=== PATIENT | female | born 1995 | race Caucasian/White ===

== ENCOUNTER 2018-12-11 04:01 | Inpatient (IN) | payer SELFPAY ==
[~2018-12-11] VITALS: Ht 154.9 cm; Wt 103.4 kg
[2018-12-11 04:09] VITALS: BP 121/60
[2018-12-11] MEDS ORDERED: ONDANSETRON 4 MG/2 ML VIAL IVP ONE (04:10)
--- NOTE | 2018-12-11 04:12 | NUR ---
PT AMBULATED TO BED 3 WITH VSS. PROVIDING URINE.
--- NOTE | 2018-12-11 04:15 | NUR ---
PATIENT PRESENTS TO ED WITH C/O DIFUSE ABD PAIN RADIATING TO RIGHT FLANK WITH 10/10 PAIN. N/V. NO CHANGE IN URINATION. AFEBRILE. VSS. NO HX. DENIES N/V/D; SKIN IS PINK/WARM/DRY; AAOX4 WITH EVEN AND STEADY GAIT; LUNGS CLEAR BL; HR EVEN AND REGULAR; PT DENIES ANY FEVER, CP, SOB, OR COUGH AT THIS TIME; PATIENT STATES PAIN OF 6/10 AT THIS TIME; VSS; PATIENT POSITIONED FOR COMFORT; HOB ELEVATED; BEDRAILS UP X2; BED DOWN. ER MD MADE AWARE OF PT STATUS.
[2018-12-11 04:25] LABS: BASOPHILS % (AUTO) 0.3 % (0.0-2.0); EOSINOPHILS % (AUTO) 0.2 % (0.0-4.0); HEMATOCRIT 39.1 % (36-48); HEMOGLOBIN 13.1 g/dL (12.0-16.0); LYMPHOCYTES # (AUTO) 1.4 K/uL (2.5-16.5); LYMPHOCYTES % (AUTO) 25.1 % (20.5-51.1); MEAN CORPUSCULAR HEMOGLOBIN 29 pg (27-31); MEAN CORPUSCULAR HGB CONC 34 g/dL (33-37); MEAN CORPUSCULAR VOLUME 86.2 fL (80-94); MONOCYTES # (AUTO) 0.3 K/uL (0.8-1.0); MONOCYTES % (AUTO) 5.3 % (1.7-9.3); NEUTROPHILS # (AUTO) 3.8 K/uL (1.8-7.7); NEUTROPHILS % (AUTO) 69.1 % (42.2-75.2); PLATELET COUNT (AUTO) 180 K/uL (140-450); RED BLOOD CELL COUNT(AUTO) 4.54 MIL/uL (4.20-5.40); RED CELL DISTRIBUTION WIDTH 14.3 % (11.6-13.7); WHITE BLOOD COUNT (AUTO) 5.4 K/uL (4.8-10.8)
[2018-12-11 04:39] LABS: ANION GAP 12.9 (8-16); CARBON DIOXIDE 25.9 mmol/L (21-32); CREATININE 0.8 mg/dL (0.6-1.3); POTASSIUM 3.8 mmol/L (3.5-5.1)
[2018-12-11 04:45] LABS: ALBUMIN 3.5 g/dL (3.4-5.0); TOTAL BILIRUBIN 1.1 mg/dL (0.0-1.0)
[2018-12-11] MEDS ORDERED: KETOROLAC 30 MG/ML VIAL IVP ONE (04:45)
[2018-12-11] MEDS ORDERED: NACL 0.9% 500 ML IV ONE (04:45)
[2018-12-11] MEDS ORDERED: MORPHINE SULFATE 2 MG/ML SYR IVP PRN (06:35)
[2018-12-11] MEDS ORDERED: ACETAMINOPHEN 325 MG TAB PO PRN (06:35)
[2018-12-11] MEDS ORDERED: LORazepam 2 MG/ML VIAL IM/IVP PRN (06:35)
[2018-12-11] MEDS ORDERED: ONDANSETRON 4 MG/2 ML VIAL IM/IVP PRN (06:35)
[2018-12-11] MEDS ORDERED: DOCUSATE SODIUM 100 MG GELCAP PO PRN (06:35)
--- NOTE | 2018-12-11 06:51 | NUR ---
Patient will be admitted to care of dr. vogt. Admited to med surge. Will go to room 125 Belongings list completed. Report to devang.
[2018-12-11] MEDS ORDERED: NACL 0.9% 1,000 ML IV SCH (07:00)
--- NOTE | 2018-12-11 07:00 | NUR ---
RECEIVED PT FROM ER VIA W/C.PLACED ON BED .ORIENTED TO ROOM.CALL SYSTEM EXPLAINED AND IN REACH.PT IS AWAKE ,ALERT AND ORIENTED X4.RESP.UNLABORED. WILL ENDORSED TO AM RN.
[2018-12-11 07:04] LABS: PROTHROMBIN TIME 9.2 secs (10.8-13.4)
[2018-12-11 07:21] LABS: MAGNESIUM 2.4 mg/dL (1.8-2.4); PHOSPHORUS 4.1 mg/dL (2.5-4.9); THYROID STIMULATING HORMONE 2.82 uIU/mL (0.34-3.74)
[2018-12-11 07:30] VITALS: BP 103/54
--- NOTE | 2018-12-11 07:30 | NUR ---
RECEIVED BEDSIDE REPORT FROM SAND CASTER NURSE. PATIENT IS AWAKE, ALERT AND ORIENTEDX4. NO SIGNS OF DISTRESS ON RA. SKIN IS INTACT. PATIENT IS AMBULATORY, CONTINENT. L AC 20G SL. CLEAN, DRY AND INTACT. NPO FOR SURGICAL CONSULT AND NM SCAN. PATIENT IS AWARE. BED IN LOW POSITION. CALL LIGHT WITHIN REACH. PATIENT ABLE TO MAKE NEEDS KNOWN
--- NOTE | 2018-12-11 08:29 | NUR ---
PATIENT HAS BEEN SCREENED AND CATEGORIZED HIGH NUTRITION RISK. PATIENT WILL BE SEEN WITHIN 1-2 DAYS OF ADMISSION. 12/11/18-12/12/[address]
[2018-12-11] MEDS ORDERED: HYDROcodone/APAP 5/325 MG 1 TAB TAB PO PRN (08:45)
[2018-12-11] MEDS: NICOTINE TRANSD SYS 7 MG/24 HR PATCH TD SCH (09:00)
[2018-12-11 09:05] LABS: APPEARANCE,URINE CLEAR (CLEAR); BILIRUBIN,URINE 1+ (NEGATIVE); BLOOD, URINE NEGATIVE (NEGATIVE); COLOR,URINE YELLOW (YELLOW); LEUKOCYTE ESTERASE ,URINE NEGATIVE (NEGATIVE); NITRITE, URINE NEGATIVE (NEGATIVE); UGLUCOSE NEGATIVE (NEGATIVE)
[2018-12-11 09:12] LABS: BARBITURATE, URINE NEG ng/ml (NEG <=200)
[2018-12-11 09:13] LABS: BENZODIAZEPINE, URINE NEG ng/mL (NEG <=200); CANNABINOID, URINE NEG ng/mL (NEG <=50); COCAINE, URINE NEG ng/mL (NEG <=300); OPIATE, URINE NEG ng/mL (NEG <=2000); PHENCYCLIDINE SCREEN,URINE NEG ng/mL (NEG <=25)
[2018-12-11] MEDS: DEXT 5% / NACL 0.45% 1,000 ML IV SCH ×2 (09:16→18:16)
--- NOTE | 2018-12-11 09:16 | NUR ---
D5 1/2NS STARTED AT 100. IV CLEAN, DRY AND INTACT. PATIENT REFUSED NICOTINE PATCH SHE SAID SHE DOES NOT NEED IT, ONLY SMOKES 1 CIGARETTE A MONTH AND NOT DEPENDENT. EDUCATED PATIENT ON REFUSAL OF PATIENT. PATIENT VERBALIZED UNDERSTANDING. FAMILY AT BEDSIDE. WILL CONTINUE TO MONITOR
[2018-12-11 09:20] LABS: RBC,URINE 0-5 /HPF (0-5); WBC,URINE 0-5 /HPF (0-5)
[2018-12-11] MEDS ORDERED: MORPHINE SULFATE 2 MG/ML SYR IVP SCH (10:30)
--- NOTE | 2018-12-11 11:20 | NUR ---
PATIENT LAYING IN BED. NO SIGNS OF DISTRESS. WILL CONTINUE TO MONITOR THE PATIENT
--- NOTE | 2018-12-11 13:19 | NUR ---
PATIENT IS AWARE NUCLEAR MED IS LATE ON SCANS. THEY WILL TOY DEPARTMENT MANAGER PATIENT LATER. PATIENT VERBALIZED UNDERSTANDING
--- NOTE | 2018-12-11 13:55 | NUR ---
PATIENT PICKED UP BY NUCLEAR MED STAFF. PATIENT LEFT IN STABLE CONDITION
--- NOTE | 2018-12-11 15:15 | NUR ---
administered 2mg morphine as ordered for nuclear med scan. patient tolerated well and educated on side effects
[2018-12-11 16:00] VITALS: BP 106/60
--- NOTE | 2018-12-11 16:00 | NUR ---
PATIENT BACK FROM NUCLEAR MED SCAN. NO SIGNS OF DISTRESS. VITALS ARE WITHIN NORMAL LIMITS. WILL CONTINUE TO MONITOR THE PATIENT.
--- NOTE | 2018-12-11 18:09 | NUR ---
PATIENTS IV ALARMING, HIGH PRESSURE ALARM GOING OFF. CHECKED FOR ANY KINKS AND RESTARTED IV. TOLD PATIENT TO CALL ME IF IT CONTINUE TO ALARM. WILL CONTINUE TO MONITOR. CALL LIGHT WITHIN REACH
--- NOTE | 2018-12-11 19:06 | NUR ---
gave bedside report to runstitching machine operator nurse. patient endorsed in stable condition.
--- NOTE | 2018-12-11 19:15 | NUR ---
RECEIVED PT IN STABLE CONDITION FROM AM NURSE. AWAKE,ALERT AND ORIENTED X4. MED SURG PT. WITH NO C/O PAIN AT THIS TIME. HAS IVF INFUSING WELL ON THE LT AC#20. CLEAR AND PATENT. PT AWARE ABOUT NPO STATUS. PLAN OF CARE DISCUSSED AND VERBALIZED UNDERSTANDING. BED ON LOW POSITION, SIDE RAILS UP X2 AND CALL LIGHT PLACED WITHIN REACH. WILL CONTINUE TO MONITOR.
--- NOTE | 2018-12-11 21:00 | NUR ---
PT STILL AWAKE, BUR NO C/O ANY PAIN AT THIS TIME.
--- NOTE | 2018-12-11 23:00 | NUR ---
PT C/O THAT SHE IS ALREADY HUNGRY AND INTEND TO JUST GO TO OTHER HOSPITAL BECAUSE SHE SAID SHE CAN'T WAIT FOR THE GI SPECIALIST. DR. JACKSON TALKED TO HER AND EXPLAINED THE NEED TO BE SEEN BY GI SPECIALIST AND CAN HAVE ICE CHIPS /SIPS WATER. IF SHE REALLY CAN'T WAIT CAN GO AMA. SO PT SAID SHE HAS TO CALL HER MOM.
--- NOTE | 2018-12-11 23:30 | NUR ---
CHECKED WITH PT. SHE SAID SHE WILL STAY. ASKED FOR SOME ICE CHIPS. .
[2018-12-12] VITALS: BP 115/72
--- NOTE | 2018-12-12 | NUR ---
PT AWAKE. VITAL SIGNS STABLE. NO C/O ANY PAIN NOTED.
--- NOTE | 2018-12-12 02:00 | NUR ---
MADE ROUNDS. PT ASLEEP. NO S/S OF ANY DISCOMFORT NOTED.
--- NOTE | 2018-12-12 04:00 | NUR ---
PT STABLE. NO C/O ANY PAIN NOTED.
--- NOTE | 2018-12-12 06:00 | NUR ---
PT ASLEEP. NO S/S OF ANY DISCOMFORT NOR PAIN NOTED.
[2018-12-12 06:32] LABS: BASOPHILS % (AUTO) 0.4 % (0.0-2.0); EOSINOPHILS # (AUTO) 0.1 K/uL (0-0.4); EOSINOPHILS % (AUTO) 2.1 % (0.0-4.0); HEMATOCRIT 36.3 % (36-48); LYMPHOCYTES # (AUTO) 2.1 K/uL (2.5-16.5); LYMPHOCYTES % (AUTO) 41.2 % (20.5-51.1); MEAN CORPUSCULAR HEMOGLOBIN 29 pg (27-31); MEAN CORPUSCULAR HGB CONC 33 g/dL (33-37); MEAN CORPUSCULAR VOLUME 87.2 fL (80-94); MONOCYTES # (AUTO) 0.3 K/uL (0.8-1.0); MONOCYTES % (AUTO) 5.7 % (1.7-9.3); NEUTROPHILS # (AUTO) 2.6 K/uL (1.8-7.7); NEUTROPHILS % (AUTO) 50.6 % (42.2-75.2); PLATELET COUNT (AUTO) 149 K/uL (140-450); RED BLOOD CELL COUNT(AUTO) 4.17 MIL/uL (4.20-5.40); RED CELL DISTRIBUTION WIDTH 14.4 % (11.6-13.7); WHITE BLOOD COUNT (AUTO) 5.2 K/uL (4.8-10.8)
[2018-12-12 06:45] LABS: CHOL/HDL RATIO 2.3 (1-4.5)
--- NOTE | 2018-12-12 06:50 | NUR ---
URINE SPECIMEN FOR TEST COLLECTED . SEND TO LAB.
[2018-12-12 07:09] LABS: ANION GAP 12.7 (8-16); CARBON DIOXIDE 25.6 mmol/L (21-32); CREATININE 0.8 mg/dL (0.6-1.3); POTASSIUM 3.3 mmol/L (3.5-5.1)
[2018-12-12 07:24] LABS: MAGNESIUM 2.1 mg/dL (1.8-2.4); PHOSPHORUS 3.6 mg/dL (2.5-4.9)
--- NOTE | 2018-12-12 07:25 | NUR ---
ENDORSED PT IN STABLE CONDITION TO AM NURSE.
[2018-12-12 07:26] LABS: ALBUMIN 2.9 g/dL (3.4-5.0); BILIRUBIN,DIRECT 0.2 mg/dL (0.0-0.3); TOTAL BILIRUBIN 0.5 mg/dL (0.0-1.0)
--- NOTE | 2018-12-12 07:30 | NUR ---
RECEIVED PT AAOX4. NO SOB NOTED. NO C/O PAIN AT THIS TIME. IV TO LEFT AC PATENT AND INTACT. CHEST CLEAR. ABDOMEN SOFT, BOWEL SOUNDS PRESENT. NPO MAINTAINED. INSTRUCTED PT TO GILBERTO FOR ASSISTANCE, CALL LIGHT WITHIN REACH, VERBALIZED UNDERSTANDING.
[2018-12-12 08:00] VITALS: BP 112/62
[2018-12-12] MEDS ORDERED: ALPRAZolam 0.5 MG TAB PO PRN (08:35)
[2018-12-12] MEDS: NICOTINE TRANSD SYS 7 MG/24 HR PATCH TD SCH (09:00)
[2018-12-12] MEDS ORDERED: POTASSIUM CHLORIDE 10 MEQ TABER PO SCH (09:04)
[2018-12-12] MEDS: DEXT 5% / NACL 0.45% 1,000 ML IV SCH ×2 (09:34→14:45)
--- NOTE | 2018-12-12 10:00 | NUR ---
PT RESTING. NO SOB NOTED. NO C/O PAIN AT THIS TIME.
--- NOTE | 2018-12-12 12:30 | NUR ---
PT CONSUMED 100% ON REGULAR DIET SERVED, FOOD TOLERATED WELL. NO COMPLAINTS MADE.
[2018-12-12] MEDS ORDERED: ACET-1182 PO (13:03)
[2018-12-12] MEDS ORDERED: ONDA-24 SL (13:03)
--- NOTE | 2018-12-12 13:17 | NUR ---
12/12/18 RD INITIAL ASSESSMENT COMPLETED PLEASE REFER TO NUTRITION ASSESSMENT UNDER CARE ACTIVITY FOR ESTIMATED NUTRITIONAL NEEDS. 1. CONTINUE CLEAR LIQUID DIET TOLERATED 2. GALLBLADDER NUTRITION EDUCATION WAS PROVIDED TO THE PATIENT 3. RD TO FOLLOW-UP 5-7 DAYS, LOW RISK MISTY KOWALSKI RD
[2018-12-12 16:00] VITALS: BP 99/58
--- NOTE | 2018-12-12 16:00 | NUR ---
BLOOD DRAWN FOR BMP.
[2018-12-12 17:06] LABS: ANION GAP 13.6 (8-16); CARBON DIOXIDE 26.2 mmol/L (21-32); CREATININE 0.8 mg/dL (0.6-1.3); POTASSIUM 3.8 mmol/L (3.5-5.1)
[2018-12-12 17:10] LABS: ALBUMIN 2.9 g/dL (3.4-5.0); BILIRUBIN,DIRECT 0.2 mg/dL (0.0-0.3); TOTAL BILIRUBIN 0.3 mg/dL (0.0-1.0)
--- NOTE | 2018-12-12 18:30 | NUR ---
PT SEEN BY DR. LORENZO WITH D/C ORDERS.
--- NOTE | 2018-12-12 19:00 | NUR ---
PT AWAKE,NO SOB NOTED. NO COMPLAINTS MADE. WILL ENDORSE TO NEXT SHIFT NURSE TO CONTINUE WITH THE DISCHARGE PROCESS.
--- NOTE | 2018-12-12 19:30 | NUR ---
RECEIVED ENDORSEMENT FROM AM SHIFT RN; PATIENT TALKING WITH SISTER; Ashley/Ox4, ABLE TO MAKE NEEDS KNOWN, AMBULATORY. INTRODUCED SELF, UPDATED BOARD. NO SOB OR DISTRESS NOTED. IV SITE LEFT ANTECUBITAL, 20 GAUGE, PATENT AND INTACT. ABDOMEN SOFT, BOWEL SOUNDS PRESENT. BED IN THE LOWEST POSITION, CALL LIGHT WITHIN REACH. INITIAL ASSESSMENT DONE. WILL CONTINUE TO MONITOR.
[2018-12-12 19:49] VITALS: BP 109/71
--- NOTE | 2018-12-12 20:30 | NUR ---
PATIENT SIGNED DISCHARGE PAPERWORK. EDUCATION AND INFORMATION PACKETS PROVIDED, VERBALIZED UNDERSTANDING. REMOVED IV, TIP INTACT AND REMOVED WRIST BAND. PATIENT LEFT UNIT VIA WHEELCHAIR, ACCOMPANIED BY BULB FARMWORKER AND SISTER. PATIENT IN STABLE CONDITION.
[2018-12-13 10:57] LABS: HEPATITIS A ANTIBODY IGM Negative (Negative); HEPATITIS B CORE AB TOTAL Negative (Negative); HEPATITIS B SURFACE ANTIBODY Reactive (.); HEPATITIS B SURFACE ANTIGEN Negative (Negative)
== END 2018-12-12 20:30 | disposition home or self-care (01) | DRG 445 ==
LOC: MED 04:01 → MMU 06:33
PROVIDERS: ADMIT General Practice; ATTEND General Practice
DX: K80.20 Calculus of gallbladder without cholecystitis without obstruction (principal); Z68.41 Body mass index [BMI] 40.0-44.9, adult; F17.210 Nicotine dependence, cigarettes, uncomplicated; E87.6 Hypokalemia; E66.01 Morbid (severe) obesity due to excess calories; Z71.3 Dietary counseling and surveillance
CPT/HCPCS: 36415; 71045; 76705; 78445; 80048; 80053; 80076; 80305; 81001; 81025; 82150; 83036; 83690; 83735; 84100; 84443; 85025; 85610; 85730; 86704; 86706; 86708; 86709; 86803; 87081; 87086; 87340; 93005; 96374; 96375; 99285; J1885; J2270; J2405; J7030; Q0092

== ENCOUNTER 2019-09-25 01:33 | Emergency (ER) | payer MEDICAID ==
[~2019-09-25] VITALS: Ht 154.9 cm; Wt 102.1 kg
[~2019-09-25 01:33] MED LIST: ACET-1182 PO; ONDA-24 SL
[2019-09-25 01:35] VITALS: BP 100/64
--- NOTE | 2019-09-25 01:35 | NUR ---
TO BED # 04 AMBULATORY
--- NOTE | 2019-09-25 01:35 | NUR ---
TO BED # 04 AMBULATORY
--- NOTE | 2019-09-25 01:45 | NUR ---
LAB AT BEDSIDE.
--- NOTE | 2019-09-25 01:45 | NUR ---
Juanita llanos in [facility] - 09/25/19 at 0146 by EDY MAYNOR
[2019-09-25 01:52] LABS: BASOPHILS % (AUTO) 0.3 % (0.0-2.0); EOSINOPHILS # (AUTO) 0.1 K/uL (0-0.4); EOSINOPHILS % (AUTO) 0.5 % (0.0-4.0); HEMATOCRIT 38.2 % (36-48); HEMOGLOBIN 12.5 g/dL (12.0-16.0); LYMPHOCYTES % (AUTO) 29.4 % (20.5-51.1); MEAN CORPUSCULAR HEMOGLOBIN 30 pg (27-31); MEAN CORPUSCULAR HGB CONC 33 g/dL (33-37); MEAN CORPUSCULAR VOLUME 91.8 fL (80-94); MONOCYTES # (AUTO) 0.6 K/uL (0.8-1.0); MONOCYTES % (AUTO) 6.1 % (1.7-9.3); NEUTROPHILS # (AUTO) 6.6 K/uL (1.8-7.7); NEUTROPHILS % (AUTO) 63.7 % (42.2-75.2); PLATELET COUNT (AUTO) 154 K/uL (140-450); RED BLOOD CELL COUNT(AUTO) 4.16 MIL/uL (4.20-5.40); RED CELL DISTRIBUTION WIDTH 14.3 % (11.6-13.7); WHITE BLOOD COUNT (AUTO) 10.3 K/uL (4.8-10.8)
--- NOTE | 2019-09-25 02:00 | NUR ---
24 Y/O FEMALE PRESENTS TO ED, C/O ABDOMINAL PAIN THAT RADIATES TO FLANK. PAIN 8/10. C/O NAUSEA AND VOMITING, 1 EPISODE. BS ACTIVE X4 QUADRANTS. PT DENIES ANY FEVER AND DIARRHEA. NO MEDICATIONS TAKEN PRIOR COMING TO ED. PT VSS. ERMD AWARE. WILL CONTINUE TO MONITOR.
[2019-09-25] MEDS ORDERED: NACL 0.9% 500 ML IV ONE (02:01)
[2019-09-25 02:05] LABS: ANION GAP 14.4 (8-16); CARBON DIOXIDE 24.9 mmol/L (21-32); CREATININE 0.8 mg/dL (0.6-1.3); POTASSIUM 3.3 mmol/L (3.5-5.1)
[2019-09-25] MEDS ORDERED: ONDANSETRON 4 MG/2 ML VIAL IVP ONE (02:05)
[2019-09-25] MEDS ORDERED: KETOROLAC 15 MG/ML VIAL IVP ONE (02:10)
--- NOTE | 2019-09-25 02:25 | NUR ---
PT UNABLE TO PROVIDE URINE AT THIS TIME
[2019-09-25] MEDS ORDERED: NACL 0.9% 1,000 ML IV ONE (03:00)
--- NOTE | 2019-09-25 03:20 | NUR ---
URINE COLLECTED AND SENT TO LAB
[2019-09-25 03:25] LABS: APPEARANCE,URINE SL CLOUDY (CLEAR); BILIRUBIN,URINE NEGATIVE (NEGATIVE); BLOOD, URINE NEGATIVE (NEGATIVE); COLOR,URINE YELLOW (YELLOW); LEUKOCYTE ESTERASE ,URINE NEGATIVE (NEGATIVE); NITRITE, URINE NEGATIVE (NEGATIVE); UGLUCOSE NEGATIVE (NEGATIVE)
--- NOTE | 2019-09-25 03:43 | NUR ---
ULTRA SOUND AT BEDSIDE
[2019-09-25 04:20] VITALS: BP 100/64
--- NOTE | 2019-09-25 04:20 | NUR ---
PT DISCHARGED WITH PAPERWORK. EDUCATED PT REGARDING MEDICATIONS AND D/C INSTRUCTIONS. PT VERBALIZED UNDERSTANDING OF TEACHING. TOLD PT TO FOLLOW UP WITH PCP AND WHEN TO RETURN TO ED. PT STABLE CONDITION. ALL QUESTIONS ANSWERED.
== END 2019-09-25 04:20 | disposition home or self-care (01) ==
LOC: MED 01:33
DX: O99.611 Diseases of the digestive system complicating pregnancy, first trimester (principal); O00.01 Abdominal pregnancy with intrauterine pregnancy; K80.20 Calculus of gallbladder without cholecystitis without obstruction; Z3A.01 Less than 8 weeks gestation of pregnancy; Z79.899 Other long term (current) drug therapy
CPT/HCPCS: 36415; 76705; 76801; 80048; 81003; 83690; 84702; 85025; 86900; 86901; 96361; 96374; 96375; 99284; J1885; J2405; J7030; Q0092

== ENCOUNTER 2019-10-29 19:31 | Emergency (ER) | payer SELFPAY ==
[~2019-10-29] VITALS: Ht 154.9 cm; Wt 105.7 kg
[2019-10-29 19:40] VITALS: BP 110/74
--- NOTE | 2019-10-29 19:46 | NUR ---
24 Y/O FEMALE BIB SELF. RT FLANK PAIN RADIATING TO HER BACK 3 HOURS AGO, NAUSEA, 11 WEEKS, LMP 11.15. ABDOMINAL SOUNDS HEARD THROUGHOUT; +NAUSEA; DENIES VOMITING AND DIARRHEA AT THIS TIME. ABDOMEN SOFT AND ROUND; TENDER TO TOUCH; 5/10 PAIN. ERMD MADE AWARE OF STATUS. SIDE RAILSX1. WILL CONTINUE TO MONITOR. PMH:DENIES RX: VITAMINS NKDA
--- NOTE | 2019-10-29 19:46 | NUR ---
PT TO ER BED 6
--- NOTE | 2019-10-29 20:04 | NUR ---
Dr. Millan examining patient.
[2019-10-29] MEDS ORDERED: NACL 0.9% 1,000 ML IV ONE (20:15)
--- NOTE | 2019-10-29 20:16 | NUR ---
PATIENT AMBULATED TO RESTROOM.
--- NOTE | 2019-10-29 20:21 | NUR ---
PATIENT AMBULATED BACK TO BED.
--- NOTE | 2019-10-29 20:26 | NUR ---
Ultrasound at bedside.
[2019-10-29 20:37] LABS: BASOPHILS # (AUTO) 0.1 K/uL (0.00-0.22); BASOPHILS % (AUTO) 1.4 % (0.0-2.0); EOSINOPHILS % (AUTO) 0.2 % (0.0-4.0); HEMATOCRIT 38.4 % (36-48); HEMOGLOBIN 12.8 g/dL (12.0-16.0); LYMPHOCYTES # (AUTO) 0.8 K/uL (2.5-16.5); LYMPHOCYTES % (AUTO) 8.5 % (20.5-51.1); MEAN CORPUSCULAR HEMOGLOBIN 31 pg (27-31); MEAN CORPUSCULAR HGB CONC 33 g/dL (33-37); MEAN CORPUSCULAR VOLUME 91.4 fL (80-94); MONOCYTES # (AUTO) 0.2 K/uL (0.8-1.0); MONOCYTES % (AUTO) 2.3 % (1.7-9.3); NEUTROPHILS # (AUTO) 8.1 K/uL (1.8-7.7); NEUTROPHILS % (AUTO) 87.6 % (42.2-75.2); PLATELET COUNT (AUTO) 134 K/uL (140-450); RED BLOOD CELL COUNT(AUTO) 4.21 MIL/uL (4.20-5.40); RED CELL DISTRIBUTION WIDTH 14.4 % (11.6-13.7); WHITE BLOOD COUNT (AUTO) 9.2 K/uL (4.8-10.8)
[2019-10-29] MEDS ORDERED: ACETAMINOPHEN 650 MG/20.3 ML UDC PO ONE (20:45)
[2019-10-29 21:00] LABS: ALBUMIN 3.3 g/dL (3.4-5.0); ANION GAP 12.5 (8-16); CARBON DIOXIDE 27.1 mmol/L (21-32); CREATININE 0.7 mg/dL (0.6-1.3); POTASSIUM 3.6 mmol/L (3.5-5.1); TOTAL BILIRUBIN 0.4 mg/dL (0.0-1.0)
[2019-10-29 21:09] LABS: APPEARANCE,URINE CLEAR (CLEAR); BILIRUBIN,URINE NEGATIVE (NEGATIVE); BLOOD, URINE NEGATIVE (NEGATIVE); LEUKOCYTE ESTERASE ,URINE NEGATIVE (NEGATIVE); NITRITE, URINE NEGATIVE (NEGATIVE); UGLUCOSE NEGATIVE (NEGATIVE)
[2019-10-29 21:28] LABS: COLOR,URINE YELLOW (YELLOW)
[2019-10-29 22:09] VITALS: BP 110/74
--- NOTE | 2019-10-29 22:09 | NUR ---
Patient discharged with v/s stable. Written and verbal after care instructions given and explained. Patient verbalized understanding. Ambulatory with steady gait. All questions addressed prior to discharge. Advised to follow up with PMD.
== END 2019-10-29 22:09 | disposition home or self-care (01) ==
LOC: MED 19:31
DX: O26.611 Liver and biliary tract disorders in pregnancy, first trimester (principal); K80.50 Calculus of bile duct without cholangitis or cholecystitis without obstruction; Z3A.11 11 weeks gestation of pregnancy; Z79.899 Other long term (current) drug therapy
CPT/HCPCS: 36415; 76705; 80053; 81003; 81025; 83690; 85025; 99284; J7030; Q0092; 99285

== ENCOUNTER 2020-01-10 14:59 | Emergency (ER) | payer OTHER, SELFPAY ==
[~2020-01-10] VITALS: Ht 154.9 cm; Wt 109.8 kg
[2020-01-10 15:02] VITALS: BP 121/73
[2020-01-10 16:09] VITALS: BP 121/73
== END 2020-01-10 16:08 | disposition home or self-care (01) ==
LOC: EEVIPCON 14:59 → MED 14:59
DX: O98.512 Other viral diseases complicating pregnancy, second trimester (principal); Z20.828 Contact with and (suspected) exposure to other viral communicable diseases; B34.9 Viral infection, unspecified; Z3A.22 22 weeks gestation of pregnancy; Z79.899 Other long term (current) drug therapy
CPT/HCPCS: 36415; 99283

== ENCOUNTER 2022-05-11 13:14 | Emergency (ER) | payer OTHER ==
[~2022-05-11] VITALS: Ht 154.9 cm; Wt 123.8 kg
[~2022-05-11 13:14] MED LIST changes: +ONDA-188 SL; -ONDA-24 SL
[2022-05-11 13:36] VITALS: BP 126/64
--- NOTE | 2022-05-11 14:13 | NUR ---
PT AMBULATED TO BED 07.
[2022-05-11] MEDS ORDERED: ACETAMINOPHEN EXTRA STRENGTH 500 MG TAB PO ONE (14:35)
--- NOTE | 2022-05-11 14:40 | NUR ---
27YO FEMALE PT C/O SHARP 8/10 PELVIC PAIN X7AM THIS MORNING. PT REPORTS SUDDEN ONSET ALONG W/ NAUSEA AND DULL LOWER BACK PAIN. DENIES V/D, DYSURIA, CHEST PAIN OR SOB. LMP March , DENIES VAGINAL BLEEDING OR DISCOMFORT. DENIES TAKING MEDICATION FOR PAIN. BACK PRESENTS W/O VISIBLE INJURY , PT ABLE TO BEND AND TWIST AT WAIST W/ EASE. PT AAOX4, RESPIRATIONS EVEN AND UNLABORED. BED AT LOWEST POSITION, BED RAILS UP X1. HX: DENIES NKA PT + AND NOTIFIED BY ERMD .
--- NOTE | 2022-05-11 14:43 | NUR ---
US AT BEDSIDE
--- NOTE | 2022-05-11 15:39 | NUR ---
The patient's care was reviewed and supervised by Sarath Cota RN.
== END 2022-05-11 15:39 | disposition home or self-care (01) ==
LOC: MED 13:14
DX: O26.891 Other specified pregnancy related conditions, first trimester (principal); Z3A.01 Less than 8 weeks gestation of pregnancy
CPT/HCPCS: 36415; 76801; 81002; 81025; 84702; 86901; 99284; Q0092